=== PATIENT | female | born 1960 | race Caucasian/White ===

== ENCOUNTER → 2016-09-08 | Outpatient (CLI) | payer OTHER ==
--- NOTE | 2016-09-08 13:41 | XR ---
EXAMINATION TYPE: XR ankle complete 3 views LT, XR foot complete 3 views LT DATE OF EXAM: 09/08/2016 1:27 PM COMPARISON: NONE HISTORY: 56 year-old female left ankle/foot sprain one week ago with pain. FINDINGS: Ankle: The ankle mortise is congruent with preservation of the distal tibiofibular overlap. Talar dome is in tact. Subtalar joint is aligned. No acute fracture or dislocation seen. Tiny early plantar calcaneal spur is noted. Left foot: Suggestion of some early bunion formation. No acute fracture, subluxation, or dislocation. IMPRESSION: Left ankle and foot without acute osseous abnormality seen.
== END ==
LOC: RADXRMAIN 13:08
PROVIDERS: ATTEND Emergency Medicine
DX: S93.602A Unspecified sprain of left foot, initial encounter (principal); S93.402A Sprain of unspecified ligament of left ankle, initial encounter

== ENCOUNTER → 2016-09-22 | Outpatient (CLI) | payer OTHER ==
--- NOTE | 2016-09-24 00:04 | MR ---
EXAMINATION TYPE: MR ankle LT wo con, MR foot LT wo con DATE OF EXAM: 09/22/2016 9:58 PM COMPARISON: Radiographs 09/08/2016 HISTORY: 56-year-old female left foot and ankle pain. Patient having left foot/ankle pain and clickin g. TECHNIQUE: Multiplanar, multisequence images of the left ankle and foot were obtained without IV cont rast. FINDINGS: ANKLE: Evaluation of the osseous structures shows a small nondisplaced fracture involving the medial proxima l corner of the cuboid at the calcaneal cuboidal articulation, sagittal image 8, axial image 12, and coronal image 11. Associated bone marrow edema within the cuboid. There is a focal osseous contusion along the proximal plantar aspect of the cuboid as well. On the fo ot exam, series 501, coronal image 30, there may be a subtle incomplete vertically oriented fracture here. Additional small osseous contusion seen such as along the inferior medial talar head and mid me dial talar dome. Prominent bimalleolar soft tissue swelling is noted. There is edema along the deep posterior deltoid ligament fibers which remain intact. The spring ligam ents appear intact. Mild tenosynovial fluid seen along the inframalleolar posterior tibial tendon and also along the flex or hallucis longus along the posterior aspect of the ankle. Despite the bone contusion along the inferior cuboid, the overlying peroneus longus appears intact. P eroneus brevis also appears intact. Prominent fluid laterally at the ankle with diminutive ATFL showing anterior bowing convexity. There is some inhomogeneity of the normal striated PTFL fibers and thickening and inhomogeneity of the CFL as well. The syndesmosis appears intact. Anterior extensor tendons appear within normal limits. Moderate posterior tibiotalar and subtalar joint effusions. Achilles tendon is intact. Minimal edema overlying the origin of the plantar fascia nonspecific. No s ignificant thickening at the origin of the plantar fascia. FOOT: Mild degenerative spurring at the first MTP joint. However, there is prominent subchondral cystic sukhi nge at the level of the first metatarsal head. Mild nonspecific forefoot soft tissue swelling. No additional acute fracture or focal bone bruise is seen. The Lisfranc ligament appears intact. The extensor and flexor tendons in the foot show no gross abnormality. Inhomogeneous loss of fat satu ration along the lateral forefoot on the axial series. COMBINED IMPRESSION: ANKLE: 1. Nondisplaced fracture medial proximal corner of the cuboid at the calcaneocuboidal articulation. A dditional focal bone bruise versus small incomplete fracture along the proximal inferior cuboid. 2. Other focal bone bruises are present at the medial talar head and mid medial talar dome. 3. Bimalleolar soft tissue swelling with a grade 1 deltoid ligament sprain and grade 2 sprains of the lateral ligamentous complex. 4. Mild posterior tibial tenosynovitis probably reactive. FOOT: 1. Mild first MTP joint osteoarthrosis. 2. Mild nonspecific forefoot soft tissue swelling. 3. No additional acute fracture or significant soft tissue abnormality seen within the foot.
== END | disposition home or self-care (01) ==
LOC: RADMRIMAIN 20:35
PROVIDERS: ATTEND Emergency Medicine
DX: S93.422D Sprain of deltoid ligament of left ankle, subsequent encounter (principal); S82.55XA Nondisplaced fracture of medial malleolus of left tibia, initial encounter for closed fracture; M65.872 Other synovitis and tenosynovitis, left ankle and foot; S90.02XA Contusion of left ankle, initial encounter; M18.12 Unilateral primary osteoarthritis of first carpometacarpal joint, left hand